=== PATIENT | female | born 1970 | race American Indian/Alaskan Native ===

== ENCOUNTER 2017-05-08 14:30 | Emergency (ER) | payer OTHER ==
[2017-05-08 15:15] VITALS: BP 108/55
[2017-05-08 16:03] LABS: Anion Gap 24 mmol/L; BUN/Creatinine Ratio 11; Blood Urea Nitrogen 8 mg/dL (7-17); Calcium 9.1 mg/dL (8.4-10.2); Carbon Dioxide 19 mmol/L (22-30); Chloride 99.6 mmol/L (98-107); Glucose 155 mg/dL (65-100); Potassium 4.8 mmol/L (3.6-5.0); Sodium 138 mmol/L (137-145)
[2017-05-08 19:11] LABS: Hemoglobin 2.9 gm/dl (10.1-14.3); Red Blood Count 1.46 M/mm3 (3.65-5.03); White Blood Count 6.3 K/mm3 (4.5-11.0)
[2017-05-08 19:12] LABS: Hematocrit 10.3 % (30.3-42.9); Mean Corpuscular HGB Conc 29 % (30-34); Mean Corpuscular Hemoglobin 20 pg (28-32); Mean Corpuscular Volume 70 fl (79-97); Platelet Count 569 K/mm3 (140-440); Red Cell Distribution Width 29.8 % (13.2-15.2)
[2017-05-08 19:29] LABS: Anisocytosis 3+; Blastocytes % (Manual) 0 %; Eosinophils % (Manual) 0 % (0.0-4.3)
[2017-05-08 19:30] LABS: Hypochromasia 2+
[2017-05-08 19:31] LABS: Tear Drop Cells 1+
[2017-05-08 19:32] LABS: Diff Status Complete; Microcytosis 1+; Platelet Estimate Appears Increased
== END 2017-05-08 19:17 | disposition left against medical advice (07) ==
LOC: ED 14:30
DX: R55 Syncope and collapse (principal); Z53.21 Procedure and treatment not carried out due to patient leaving prior to being seen by health care provider
CPT/HCPCS: 36415; 80048; 85007; 85025; 86850; 86900; 86901; 93005; 93010